=== PATIENT | female | born 1955 | race Two or more races ===

== ENCOUNTER 2020-06-30 14:53 | Emergency (ER) | payer OTHER ==
[~2020-06-30] VITALS: Ht 157.5 cm; Wt 59.0 kg
[2020-06-30] MEDS ORDERED: CALC-11 PO (15:22)
[2020-06-30] MEDS ORDERED: CETI10TA14 PO (15:22)
[2020-06-30] MEDS ORDERED: FLUO20CA42 PO (15:22)
[2020-06-30] MEDS ORDERED: MAGN500T2 PO (15:22)
[2020-06-30] MEDS ORDERED: EXEM25TA5 PO (15:22)
[2020-06-30] MEDS ORDERED: SIMV10TA98 PO (15:22)
[2020-06-30] MEDS ORDERED: ASPI-1420 PO (15:22)
--- NOTE | 2020-06-30 15:30 | NUR ---
PT BIBRA C/O R LEG WEAKNESS X 5 DAYS. PT UNSTEADY. PT AAOX4,ABLE TO FOLLOW COMMANDS, VSS, RESPIRATOINS EVEN AND UNLABORED ON RA W/ NAD NOTED. PT CONNECTED TO THE [employer] [employer] CONTACT AND POX.
--- NOTE | 2020-06-30 16:26 | NUR ---
BLOOD COLLECTED AND SENT TO LAB
--- NOTE | 2020-06-30 16:26 | NUR ---
EKG AT BEDSIDE
[2020-06-30 16:36] LABS: BASOPHILS % (AUTO) 0.3 % (0.0-2.0); EOSINOPHILS % (AUTO) 1.3 % (0.0-6.0); HEMATOCRIT 39 % (39-51); HEMOGLOBIN 13.1 g/dL (13.5-17.5); LYMPHOCYTES # (AUTO) 1.8 /CMM (0.8-4.8); LYMPHOCYTES % (AUTO) 25.6 % (20.0-44.0); MEAN CORPUSCULAR HGB CONC 33 g/dl (31.0-36.0); MEAN CORPUSCULAR VOLUME 91 fL (80-96); MONOCYTES # (AUTO) 0.6 /CMM (0.1-1.30); MONOCYTES % (AUTO) 7.8 % (2.0-12.0); NEUTROPHILS # (AUTO) 4.6 /CMM (1.8-8.9); PLATELET COUNT (AUTO) 265 /CMM (150-450); RED BLOOD CELL COUNT(AUTO) 4.29 MIL/uL (4.5-6.0); WHITE BLOOD COUNT (AUTO) 7.1 K/uL (4.3-11.0)
--- NOTE | 2020-06-30 16:49 | NUR ---
covid swab collected sent to lab
[2020-06-30 16:50] LABS: ALBUMIN 3.9 g/dL (3.4-5.0); BILIRUBIN,DIRECT 0.1 mg/dL (0.0-0.2); BILIRUBIN,TOTAL 0.6 mg/dL (0.2-1.0); CALCIUM, SERUM 9.7 mg/dL (8.5-10.1); CREATININE 0.9 mg/dL (0.6-1.3); POTASSIUM 3.9 mmol/L (3.5-5.1); TOTAL PROTEIN, SERUM 7.7 g/dL (6.4-8.2)
--- NOTE | 2020-06-30 17:51 | NUR ---
VERBAL AUTHORIZATION TO ADMIT GIVEN.
[2020-06-30] MEDS ORDERED: LEVETIRACETAM (500MG) 500 MG in IV NS 0.9% 100 ML IV SCH (18:30)
[2020-06-30] MEDS ORDERED: DEXAMETHASONE SOD PHOSPHATE 10 MG/ML VIAL IV ONE (18:30)
[2020-06-30] MEDS ORDERED: DEXAMETHASONE SOD PHOSPHATE 10 MG/ML VIAL ONE (19:25)
--- NOTE | 2020-06-30 20:38 | NUR ---
facesheet and clinicals faxed to [facility].
--- NOTE | 2020-07-01 00:07 | NUR ---
Pt accepted to [facility] by Dr Anderson, Room 1416-1. # for report [phone].
--- NOTE | 2020-07-01 00:15 | NUR ---
REPORT GIVENT TO ESTRELLA RUST FOR [employer] [facility]
[2020-07-01 00:20] VITALS: BP 101/61
== END 2020-07-01 00:21 | disposition short-term general hospital (02) ==
LOC: EDSEX 14:55 → ER 14:55
DX: G93.89 Other specified disorders of brain (principal); G83.11 Monoplegia of lower limb affecting right dominant side; G93.6 Cerebral edema; R94.31 Abnormal electrocardiogram [ECG] [EKG]; Z20.828 Contact with and (suspected) exposure to other viral communicable diseases; Z85.3 Personal history of malignant neoplasm of breast; Z86.73 Personal history of transient ischemic attack (TIA), and cerebral infarction without residual deficits; I10 Essential (primary) hypertension; Z79.82 Long term (current) use of aspirin; Z79.899 Other long term (current) drug therapy
CPT/HCPCS: 36415; 70450; 80048; 80076; 85025; 85730; 87426; 93005; 96365; 96375; 99291; C9803; J1100; J1953; J7030